=== PATIENT | male | born 1970 | race African-American/Black ===

== ENCOUNTER 2018-04-16 12:30 | Inpatient (IN) | payer MEDICARE, MEDICAID ==
[~2018-04-16] VITALS: Ht 175.3 cm; Wt 96.6 kg
[2018-04-16 12:50] VITALS: BP 177/120
--- NOTE | 2018-04-16 13:58 | Diagnostic Imaging Report ---
Indication: Chest pain Comparison: None A single view chest radiograph was obtained. Findings: There is a left permacath present in good position. Cardiomegaly is noted. Pulmonary vascularity is mildly prominent. Bones are unremarkable. IMPRESSION: Left permacath. Query mild CHF
[2018-04-16 14:39] LABS: ALANINE AMINOTRANSFERASE 29 U/L (12-78); ALBUMIN 3.7 G/DL (3.4-5.0); ALBUMIN/GLOBULIN RATIO 1.2 (1.0-2.7); ALKALINE PHOSPHATASE 139 U/L (46-116); ANION GAP 15 mmol/L (5-15); ASPARTATE AMINO TRANSFERASE 32 U/L (15-37); BILIRUBIN,TOTAL 0.5 MG/DL (0.2-1.0); BLOOD UREA NITROGEN 67 mg/dL (7-18); CALCIUM 8.4 MG/DL (8.5-10.1); CARBON DIOXIDE 25 MMOL/L (21-32); CHLORIDE 102 MMOL/L (98-107); CKMB 12.5 NG/ML (0.0-3.6); CREATINE KINASE 988 U/L (26-308); CREATININE 17.4 MG/DL (0.55-1.30); POTASSIUM 5.3 MMOL/L (3.5-5.1); SODIUM 142 MMOL/L (136-145)
[2018-04-16 15:05] LABS: HEMATOCRIT 31.5 % (42.0-52.0); HEMOGLOBIN 10.6 G/DL (14.2-18.0); MEAN CORPUSCULAR VOLUME 96 FL (80-99); PLATELET COUNT 97 K/UL (150-450); RED BLOOD COUNT 3.29 M/UL (4.70-6.10); RED CELL DISTRIBUTION WIDTH 14.6 % (11.6-14.8); WHITE BLOOD COUNT 6.9 K/UL (4.8-10.8)
--- NOTE | 2018-04-16 15:18 | Emergency Room Report ---
History of Present Illness General Chief Complaint: General Complaint Source: Patient Present Illness HPI 47-year-old male presents ED for evaluation. Patient states that he was sent here for fluid overload. History of end-stage renal disease and gets dialysis. Patient got dialysis on Saturday because center was closed on Saturday for holiday. Patient is here for his scheduled Saturday dialysis but center sent him here because he had "too much fluid". Patient denies chest pain or shortness of breath. Denies any weakness. Denies any dizziness. No other aggravating relieving factors. Denies any other associated symptoms Allergies: Coded Allergies: No Known Allergies (Unverified , 04/16/18) Patient History Past Medical History: HTN, renal disease, dialysis Past Surgical History: none Pertinent Family History: none Social History: Denies: smoking, alcohol use, drug use Immunizations: UTD Reviewed Nursing Documentation: PMH: Agreed; PSxH: Agreed Nursing Documentation-PMH Past Medical History: No History, Except For Hx Hypertension: Yes Hx Dialysis: Yes - M-W-F Review of Systems All Other Systems: negative except mentioned in HPI Physical Exam Vital Signs Date Time Temp Pulse Resp B/P (MAP) Pulse Ox O2 Delivery O2 Flow Rate FiO2 04/16/18 12:45 98.1 93 20 184/110 95 Room Air Sp02 EP Interpretation: reviewed, normal General Appearance: no apparent distress, alert, GCS 15, non-toxic Head: normocephalic, atraumatic Eyes: bilateral eye normal inspection, bilateral eye PERRL ENT: hearing grossly normal, normal pharynx, no angioedema, normal voice Neck: full range of motion, supple/symm/no masses Respiratory: chest non-tender, lungs clear, normal breath sounds, speaking full sentences Cardiovascular #1: regular rate, rhythm, no edema Cardiovascular #2: 2+ carotid (R), 2+ carotid (L), 2+ radial (R), 2+ radial (L) , 2+ dorsalis pedis (R), 2+ dorsalis pedis (L) Gastrointestinal: normal bowel sounds, non tender, soft, no guarding, no rebound, other - anasarca Rectal: deferred Genitourinary: normal inspection, no CVA tenderness Musculoskeletal: back normal, gait/station normal, normal range of motion, non- tender Neurologic: alert, oriented x3, responsive, motor strength/tone normal, sensory intact, speech normal Psychiatric: judgement/insight normal, memory normal, mood/affect normal, no suicidal/homicidal ideation Reflexes: 3+ bicep (R), 3+ bicep (L), 3+ tricep (R), 3+ tricep (L), 3+ knee (R) , 3+ knee (L) Skin: normal color, no rash, warm/dry, well hydrated Lymphatic: no adenopathy Medical Decision Making Diagnostic Impression: Primary Impression: ESRD on dialysis Additional Impression: Fluid overload Qualified Codes: E87.70 - Fluid overload, unspecified ER Course Hospital Course 47 yo M presents with fluid overload. h/o ESRD Differential diagnoses include: IA/unstable angina, fluid overload, CHF exacerabation, hyperkalemia, uremia Clinical course Patient placed on stretcher. on property assessment monitor. After initial history and physical I ordered labs, EKG, chest x-ray labs reviewed- BUN/Cr elevated. K 5.1. no leukocytosis, hemoglobin/hematocrit stable, trop 0.09 EKG - NSR, no acute ischemic changes interpreted by me Chest x-ray- permacath, cardiomegaly No chest pain or shortness of breath. Likely troponin leak. Asymptomatic. Case discussed with Dr. Schmidt and he agreed to accept the patient to his service for further care and support I. I feel this is a highly complex case requiring extensive working including EKG/Rhythm strip, Xray/CT/US, Blood/urine lab work, repeat exams while in ED, and administration of strong opiates/narcotics for pain control, admission to hospital or close patient follow up. Diagnosis - ESRD on dialysis, fluid overload admitted to floor in serious condition Labs Test 04/16/18 13:55 04/16/18 14:25 Sodium Level 142 MMOL/L (136-145) Potassium Level 5.3 MMOL/L (3.5-5.1) Chloride Level 102 MMOL/L (98-107) Carbon Dioxide Level 25 MMOL/L (21-32) Anion Gap 15 mmol/L (5-15) Blood Urea Nitrogen 67 mg/dL (7-18) Creatinine 17.4 MG/DL (0.55-1.30) Estimat Glomerular Filtration Rate 3.6 mL/min (>60) Glucose Level 89 MG/DL (74-106) Calcium Level 8.4 MG/DL (8.5-10.1) Total Bilirubin 0.5 MG/DL (0.2-1.0) Aspartate Amino Transf (AST/SGOT) 32 U/L (15-37) Alanine Aminotransferase (ALT/SGPT) 29 U/L (12-78) Alkaline Phosphatase 139 U/L (46-116) Total Creatine Kinase 988 U/L (26-308) Creatine Kinase MB 12.5 NG/ML (0.0-3.6) Creatine Kinase MB Relative Index 1.2 Troponin I 0.099 ng/mL (0.000-0.056) Pro-B-Type Natriuretic Peptide 7870 pg/mL (0-125) Total Protein 6.9 G/DL (6.4-8.2) Albumin 3.7 G/DL (3.4-5.0) Globulin 3.2 g/dL Albumin/Globulin Ratio 1.2 (1.0-2.7) White Blood Count 6.9 K/UL (4.8-10.8) Red Blood Count 3.29 M/UL (4.70-6.10) Hemoglobin 10.6 G/DL (14.2-18.0) Hematocrit 31.5 % (42.0-52.0) Mean Corpuscular Volume 96 FL (80-99) Mean Corpuscular Hemoglobin 32.3 PG (27.0-31.0) Mean Corpuscular Hemoglobin Concent 33.7 G/DL (32.0-36.0) Red Cell Distribution Width 14.6 % (11.6-14.8) Platelet Count 97 K/UL (150-450) Mean Platelet Volume 8.4 FL (6.5-10.1) Neutrophils (%) (Auto) % (45.0-75.0) Lymphocytes (%) (Auto) % (20.0-45.0) Monocytes (%) (Auto) % (1.0-10.0) Eosinophils (%) (Auto) % (0.0-3.0) Basophils (%) (Auto) % (0.0-2.0) EKG Diagnostic Results Rate: normal Rhythm: NSR ST Segments: no acute changes ASA given to the pt in ED: No Rhythm Strip Diag. Results EP Interpretation: yes Rhythm: NSR, no PVC's, no ectopy Last Vital Signs Date Time Temp Pulse Resp B/P (MAP) Pulse Ox O2 Delivery O2 Flow Rate FiO2 04/16/18 12:50 96 14 Room Air 04/16/18 12:50 98.4 177/120 99 Status: improved Disposition: ADMITTED INPATIENT Condition: Serious Referrals: Stormy Martínez MD (PCP) Palomo Wheeler MD Apr 16, 2018 15:18
[2018-04-16 15:30] VITALS: BP 167/110
[2018-04-16] MEDS ORDERED: ASPIR 8181 MG ORAL (16:22)
[2018-04-16] MEDS ORDERED: NORMODYNE100 MG ORAL (16:22)
[2018-04-16] MEDS ORDERED: LABETALOL H5 MG/1 M1 IV (16:22)
[2018-04-16] MEDS ORDERED: AMLODIPINE BES2.5 MG ORAL (16:22)
[2018-04-16 18:00] VITALS: BP 167/103
[2018-04-16] MEDS ORDERED: CALCIUM CARBON500 M1 (18:28)
[2018-04-16] MEDS ORDERED: CALCIUM500 M3 PO (18:28)
[2018-04-16] MEDS ORDERED: SIMVASTATIN40 MG ORAL (19:07)
[2018-04-16] MEDS ORDERED: AMLODIPINE BESY10 MG ORAL (19:07)
[2018-04-16] MEDS ORDERED: ACETAMINOPHEN325 M1 ORAL (19:07)
[2018-04-16] MEDS ORDERED: VITAMIN D1000 UNI1 ORAL (19:07)
[2018-04-16] MEDS ORDERED: RENVELA800 MG ORAL (19:07)
[2018-04-16] MEDS ORDERED: OMEPRAZOLE20 M2 ORAL (19:07)
[2018-04-16] MEDS ORDERED: RENVELA0.8 GM ORAL (19:07)
[2018-04-16] MEDS ORDERED: QUETIAPINE FUM200 MG ORAL (19:07)
[2018-04-16] MEDS ORDERED: LABETALOL HCL300 MG ORAL (19:07)
[2018-04-16] MEDS ORDERED: CALCIUM ACETAT667 M1 PO (19:07)
--- NOTE | 2018-04-16 19:15 | History and Physical Report ---
DATE OF ADMISSION: 04/16/2018 CHIEF COMPLAINT: Shortness of breath. HISTORY OF PRESENT ILLNESS: This is a 47 [place] male, who as a result of the holiday gained 8 KG. of fluids. The patient presented to the outpatient dialysis and was transferred to this hospital emergency room and is admitted. PAST MEDICAL HISTORY: 1. End-stage renal failure on dialysis. 2. Hypertensive cardiovascular disease. 3. Anemia of chronic kidney disease. MEDICATIONS: Home medications, amlodipine, labetalol, baby aspirin, Epogen on dialysis. ALLERGIES: No known drug allergies. FAMILY HISTORY: Unremarkable. SOCIAL HISTORY: He is a nonsmoker, nondrinker. There is no history of illicit drug abuse. REVIEW OF SYSTEMS: HEENT: Hearing and eyesight are normal. ENDOCRINE: No history of diabetes, thyroid or adrenal problems. RESPIRATORY: Significant for orthopnea, paroxysmal nocturnal dyspnea, dyspnea on effort. NEUROLOGICAL: No history of stroke, syncope, or Parkinson disease. PHYSICAL EXAMINATION: GENERAL: This is a middle-aged male, who is in moderate respiratory distress. VITAL SIGNS: Blood pressure 177/120, pulse is 96, respirations 20 and unlabored, O2 saturation is 99% on room air, and temperature 98.4 oral. HEENT: The head is normocephalic and atraumatic. Pupils are equal, round, and reactive to light and accommodation consensually. NECK: Supple. Trachea midline. There was no lymphadenopathy. He has jugular venous distention. LUNGS: Bilateral wheezes. HEART: Regular rate and rhythm without rubs, murmurs, or gallops. ABDOMEN: Soft and nontender. Bowel sounds were active. EXTREMITIES: His arms show multiple scars from previous vascular surgeries. NEUROLOGIC: He is alert and oriented x4. Cranial nerves II through XII intact. LABORATORY AND DIAGNOSTIC DATA: Chest x-ray shows mild congestive heart failure. CBC, hemoglobin 10.6, otherwise within normal limits. Chemistry, potassium 5.3, BUN 67, and creatinine 17.4. Troponin level 0.099. ASSESSMENT: 1. Excessive fluid overload. 2. History of pulmonary edema. 3. End-stage renal failure on dialysis. 4. Hypertensive cardiovascular disease. 5. Anemia of chronic kidney disease. PLAN: 1. Back to back dialysis today and tomorrow for removal of about eight liters of excess fluid. 2. Rule out acute myocardial ischemia. Stormy Martínez M.D. DR: BRANNON JOB#: [id number] CC: CECILIA
[2018-04-16 19:59] VITALS: BP 160/98
[2018-04-16] MEDS ORDERED: Albuterol/Ipratropium 3ml neb HHN PRN (23:00)
[2018-04-16] MEDS: Atorvastatin 20mg tab ORAL SCH (23:41)
[2018-04-16] MEDS: QUEtiapine 200mg tab ORAL SCH (23:41)
[2018-04-17] VITALS: BP 143/89
[2018-04-17 04:00] VITALS: BP 158/78
[2018-04-17 08:00] VITALS: BP 151/92
[2018-04-17] MEDS: Aspirin EC 81mg tab ORAL SCH (08:53)
[2018-04-17] MEDS: Vitamin D 1000 IU Tab ORAL SCH (08:54)
[2018-04-17] MEDS: Calcium Acetate 667mg Tab ORAL SCH ×3 (08:54→18:38)
[2018-04-17 12:00] VITALS: BP 151/105
[2018-04-17] MEDS ORDERED: Heparin 1000 units/ml 1ml Vial INJ SCH ×2 (14:30)
[2018-04-17] MEDS ORDERED: Heparin Sod 1000 units/ml 10ml IV ONE (14:30)
[2018-04-17] MEDS ORDERED: Heparin Sod 1000 units/ml 10ml IV SCH (14:30)
[2018-04-17 15:05] LABS: BASOPHILS % (AUTO) 0.9 % (0.0-2.0); EOSINOPHILS % (AUTO) 3.4 % (0.0-3.0); HEMATOCRIT 32.2 % (42.0-52.0); HEMOGLOBIN 10.8 G/DL (14.2-18.0); LYMPHOCYTES % (AUTO) 14.5 % (20.0-45.0); MEAN CORPUSCULAR VOLUME 95 FL (80-99); MONOCYTES % (AUTO) 11.5 % (1.0-10.0); NEUTROPHILS % (AUTO) 69.6 % (45.0-75.0); PLATELET COUNT 109 K/UL (150-450); RED BLOOD COUNT 3.38 M/UL (4.70-6.10); RED CELL DISTRIBUTION WIDTH 14.5 % (11.6-14.8); WHITE BLOOD COUNT 6.9 K/UL (4.8-10.8)
[2018-04-17 15:28] LABS: ANION GAP 14 mmol/L (5-15); BLOOD UREA NITROGEN 60 mg/dL (7-18); CALCIUM 8.6 MG/DL (8.5-10.1); CARBON DIOXIDE 24 MMOL/L (21-32); CHLORIDE 100 MMOL/L (98-107); CREATININE 15.5 MG/DL (0.55-1.30); POTASSIUM 5.1 MMOL/L (3.5-5.1); SODIUM 138 MMOL/L (136-145)
[2018-04-17 15:30] LABS: PHOSPHORUS 6.8 MG/DL (2.5-4.9)
[2018-04-17 16:00] VITALS: BP 153/112
--- NOTE | 2018-04-17 17:16 | Nephrology Progress Note ---
Assessment/Plan Plan Fluid overload - HD tomorrow with high volume UF. Fluid restriction. Malig. HTN-----> Escalate Rx Subjective Subjective Still SOB!!! Objective Objective Last 24 Hour Vital Signs Date Time Temp Pulse Resp B/P (MAP) Pulse Ox O2 Delivery O2 Flow Rate FiO2 04/17/18 14:11 97.7 04/17/18 12:00 97.7 92 20 151/105 (120) 98 04/17/18 09:00 Nasal Cannula 2.0 04/17/18 08:54 99 151/92 04/17/18 08:53 99 151/92 04/17/18 08:12 96 Nasal Cannula 2.0 28 04/17/18 08:12 98 18 Nasal Cannula 2.0 28 04/17/18 08:12 Nasal Cannula 2.0 28 04/17/18 08:00 95 04/17/18 08:00 97.0 99 19 151/92 (111) 98 04/17/18 04:00 95 04/17/18 04:00 97.5 95 18 158/78 (104) 98 04/17/18 00:00 85 04/17/18 00:00 98.2 87 18 143/89 (107) 94 04/16/18 23:18 Nasal Cannula 2.0 04/16/18 21:13 91 04/16/18 20:00 97.5 92 22 160/98 99 Nasal Cannula 2.0 04/16/18 19:59 97.5 94 25 160/98 99 Room Air 04/16/18 18:00 98.2 94 24 167/103 95 Intake and Output 04/16/18 04/17/18 18:59 06:59 Intake Total 240 ml Balance 240 ml Intake Oral 240 ml # Voids 1 Laboratory Tests 04/17/18 14:35: White Blood Count 6.9, Red Blood Count 3.38L, Hemoglobin 10.8L, Hematocrit 32.2L , Mean Corpuscular Volume 95, Mean Corpuscular Hemoglobin 31.9H, Mean Corpuscular Hemoglobin Concent 33.4, Red Cell Distribution Width 14.5, Platelet Count 109L, Mean Platelet Volume 11.2H, Neutrophils (%) (Auto) 69.6, Lymphocytes (%) (Auto) 14.5L, Monocytes (%) (Auto) 11.5H, Eosinophils (%) (Auto ) 3.4H, Basophils (%) (Auto) 0.9, Sodium Level 138, Potassium Level 5.1, Chloride Level 100, Carbon Dioxide Level 24, Anion Gap 14, Blood Urea Nitrogen 60H, Creatinine 15.5H, Estimat Glomerular Filtration Rate 4.1, Glucose Level 101 , Calcium Level 8.6, Phosphorus Level 6.8H Height (Feet): 5 Height (Inches): 9.00 Weight (Pounds): 189 Objective CV RR Lungs B wheezes Abds SNT. BS + E +3 edema. Stormy Martínez MD Apr 17, 2018 17:16
[2018-04-17 20:00] VITALS: BP 164/110
[2018-04-17] MEDS: Albuterol/Ipratropium 3ml neb HHN SCH ×2 (20:43→23:47)
[2018-04-17] MEDS: Atorvastatin 20mg tab ORAL SCH (21:17)
[2018-04-17] MEDS: QUEtiapine 200mg tab ORAL SCH (21:17)
[2018-04-17] MEDS: Minoxidil 2.5mg tab ORAL SCH (21:18)
[2018-04-18] VITALS: BP 149/113
[2018-04-18] MEDS: Albuterol/Ipratropium 3ml neb HHN SCH ×4 (02:18→14:53)
[2018-04-18 04:33] VITALS: BP 171/118
[2018-04-18] MEDS ORDERED: Heparin Sod 1000 units/ml 10ml IV PRN (06:00)
[2018-04-18] MEDS ORDERED: Heparin 1000 units/ml 1ml Vial INJ PRN (06:00)
[2018-04-18 08:00] VITALS: BP 161/113
--- NOTE | 2018-04-18 08:21 | Nephrology Progress Note ---
Assessment/Plan Plan Fluid overload - HD today with high volume UF. Fluid restriction. Malig. HTN-----> Escalate Rx Sleep Apnea 2 to Obesity - to Dw patient Wt. Loss needed. Subjective Subjective Still SOB!!! Observed during sleep -----> snoring!! Objective Objective Last 24 Hour Vital Signs Date Time Temp Pulse Resp B/P (MAP) Pulse Ox O2 Delivery O2 Flow Rate FiO2 04/18/18 04:34 106 04/18/18 04:33 97.7 108 19 171/118 (135) 97 04/18/18 02:27 87 18 96 Nasal Cannula 2.0 28 04/18/18 02:18 98 22 92 Room Air 21 04/18/18 00:00 97.2 99 20 149/113 (125) 97 04/18/18 00:00 96 04/17/18 23:55 97 18 96 Nasal Cannula 2.0 28 04/17/18 23:47 82 22 93 Room Air 21 04/17/18 21:45 96.6 04/17/18 21:18 164/110 04/17/18 21:17 95 164/110 04/17/18 21:00 Nasal Cannula 2.0 04/17/18 20:52 94 18 98 Nasal Cannula 2.0 28 04/17/18 20:44 98 18 Room Air 21 04/17/18 20:44 93 Room Air 21 04/17/18 20:44 Room Air 21 04/17/18 20:44 98 18 93 Room Air 21 04/17/18 20:00 97.0 95 18 164/110 (128) 97 04/17/18 20:00 98 04/17/18 16:00 91 04/17/18 16:00 96.6 93 22 153/112 (126) 96 04/17/18 12:00 97.7 92 20 151/105 (120) 98 04/17/18 12:00 94 04/17/18 09:00 Nasal Cannula 2.0 04/17/18 08:54 99 151/92 04/17/18 08:53 99 151/92 Intake and Output 04/17/18 04/18/18 19:00 07:00 Intake Total 520 ml 120 ml Balance 520 ml 120 ml Intake Oral 520 ml 120 ml # Voids 2 Laboratory Tests 04/17/18 14:35: White Blood Count 6.9, Red Blood Count 3.38L, Hemoglobin 10.8L, Hematocrit 32.2L , Mean Corpuscular Volume 95, Mean Corpuscular Hemoglobin 31.9H, Mean Corpuscular Hemoglobin Concent 33.4, Red Cell Distribution Width 14.5, Platelet Count 109L, Mean Platelet Volume 11.2H, Neutrophils (%) (Auto) 69.6, Lymphocytes (%) (Auto) 14.5L, Monocytes (%) (Auto) 11.5H, Eosinophils (%) (Auto ) 3.4H, Basophils (%) (Auto) 0.9, Sodium Level 138, Potassium Level 5.1, Chloride Level 100, Carbon Dioxide Level 24, Anion Gap 14, Blood Urea Nitrogen 60H, Creatinine 15.5H, Estimat Glomerular Filtration Rate 4.1, Glucose Level 101 , Calcium Level 8.6, Phosphorus Level 6.8H Height (Feet): 5 Height (Inches): 9.00 Weight (Pounds): 213 Objective CV RR Lungs B wheezes Abds SNT. BS + E +3 edema. Stormy Martínez MD Apr 18, 2018 08:21
[2018-04-18 08:55] LABS: BASOPHILS % (AUTO) 0.5 % (0.0-2.0); EOSINOPHILS % (AUTO) 2.1 % (0.0-3.0); HEMATOCRIT 32.8 % (42.0-52.0); HEMOGLOBIN 10.9 G/DL (14.2-18.0); LYMPHOCYTES % (AUTO) 9.9 % (20.0-45.0); MEAN CORPUSCULAR VOLUME 95 FL (80-99); MONOCYTES % (AUTO) 8.7 % (1.0-10.0); NEUTROPHILS % (AUTO) 78.9 % (45.0-75.0); PLATELET COUNT 111 K/UL (150-450); RED BLOOD COUNT 3.47 M/UL (4.70-6.10); RED CELL DISTRIBUTION WIDTH 14.4 % (11.6-14.8); WHITE BLOOD COUNT 7.5 K/UL (4.8-10.8)
[2018-04-18] MEDS: Vitamin D 1000 IU Tab ORAL SCH (09:00)
[2018-04-18] MEDS: Minoxidil 2.5mg tab ORAL SCH (09:00)
[2018-04-18] MEDS: Aspirin EC 81mg tab ORAL SCH (09:00)
[2018-04-18] MEDS: Calcium Acetate 667mg Tab ORAL SCH ×3 (09:01→16:37)
[2018-04-18 09:02] LABS: ANION GAP 13 mmol/L (5-15); BLOOD UREA NITROGEN 67 mg/dL (7-18); CALCIUM 8.3 MG/DL (8.5-10.1); CARBON DIOXIDE 25 MMOL/L (21-32); CHLORIDE 99 MMOL/L (98-107); CREATININE 18.1 MG/DL (0.55-1.30); PHOSPHORUS 6.4 MG/DL (2.5-4.9); POTASSIUM 5.8 MMOL/L (3.5-5.1); SODIUM 137 MMOL/L (136-145)
[2018-04-18 11:52] VITALS: BP 169/107
--- NOTE | 2018-04-21 08:46 | Discharge Summary ---
Discharge Summary Discharge Summary _ DATE OF ADMISSION: 04/16/2018 DATE OF DISCHARGE: 04/18/2018 DISCHARGED BY: Dr. Martínez REASON FOR ADMISSION: 47 years old male with end-stage renal disease, on hemodialysis Saturday , Saturday, Saturday, hypertensive cardiovascular disease, anemia of chronic kidney disease, presented to outpatient hemodialysis and was found to have weight gain of 8 kg of fluids over the holidays. Patient was subsequently transferred to the hospital emergency room for further evaluation and management. Patient denied chest pain. Pulse oximetry was stable on room air. Upon evaluation blood pressure was 184/110. BUN 67, creatinine 17.4 consistent with known history of end-stage renal disease. EKG revealed normal sinus rhythm, no acute ischemic changes. Hemoglobin 10.6, hematocrit 31.5 . Troponin level 0.099. EKG revealed normal sinus rhythm, no acute ischemic changes . Chest x-ray revealed mild CHF and evidence of left Perma-catheter. Patient was admitted for further management of fluid overload. HOSPITAL COURSE: Patient admitted to monitored floor. Patient started on hemodialysis for 2 days ( back to back) with goal to remove of about 8 Liters of fluid. Volumes and renal parameters were closely monitored. Supplemental oxygen was on board as needed to keep pulse oximetry above 92%. Pulse oximetry was stable on room air. No complaints of chest pain. Antihypertensive regimen consisted of labetalol and amlodipine , dose uptitrated to keep blood pressure under control. Hypertensive urgency was due to malignant hypertension and fluid overload. Antiplatelet therapy with aspirin along with statin were continued. Mild elevation in troponin,w as likely due to renal failure/troponin leak. ECG and telemetry revealed no acute ischemic changes. No complaints of chest pain . Hemoglobin and hematocrit were closely monitored, remained at baseline. Patient was counseled on weight loss. Patient was stable for discharge home FINAL DIAGNOSES: Fluid overload Hypertensive urgency due to malignant hypertension History of pulmonary edema Hypertensive cardiovascular disease End-stage renal disease, on hemodialysis Anemia of chronic kidney disease Obesity Obstructive sleep apnea DISCHARGE MEDICATIONS: See Medication Reconciliation list. DISCHARGE INSTRUCTIONS: Patient was discharged home . Reinforced compliance with medication regimen and outpatient hemodialysis. Patient was counseled on weight loss. I have been assigned to dictate discharge summary for this account. I was not involved in the patient's management. Laverne Ramirez NP Apr 21, 2018 08:46
--- NOTE | 2018-04-22 08:51 | Cardiology Report ---
APPROVED REPORT EXAM: Two-dimensional and M-mode echocardiogram with Doppler and color Doppler. INDICATION Congestive Heart Failure M-Mode DIMENSIONS IVSd1.3 (0.7-1.1cm)Left Atrium (MM)4.7 (1.6-4.0cm) LVDd4.8 (3.5-5.6cm)Aortic Root3.8 (2.0-3.7cm) PWd1.5 (0.7-1.1cm)Aortic Cusp Exc.1.7 (1.5-2.0cm) LVDs3.0 (2.5-4.0cm) PWs1.4 cm Normal left ventricular chamber size, systolic function and wall motion. Left ventricular ejection fraction estimated to be 65 %. Mild left ventricular hypertrophy. Anterior Echo-free space, may be due to pericardial fat or effusion. Moderate left atrial enlargement. Mild right atrial enlargement. Right ventricular chamber size is within normal limits. Mild focal aortic valve sclerosis with adequate cusp excursion. Mildly thickened mitral valve leaflets with normal excursion. Mitral annulus and aortic root calcification. Pulmonic valve not well visualized. Normal tricuspid valve structure. IVC at normal size with physiologic collapse. A color flow and spectral Doppler study was performed and revealed: Moderate to severe aortic regurgitation. Mild mitral regurgitation. Mitral diastolic velocities suggest reduced left ventricular relaxation c/w mild LV diastolic dysfunction (Grade I). Mild tricuspid regurgitation. Tricuspid systolic velocities suggests peak right ventricular systolic pressure of 35 mmHg, consistent with borderline mild pulmonary hypertension. Pulmonic regurgitation present.
== END 2018-04-18 18:00 | disposition home or self-care (01) | DRG 640 ==
LOC: EMR 13:14 → 2E 14:14 → EDBEDREQ 14:27 → EDBEDREQSVC 17:57 → EDBEDREQ 18:39
PROC: 5A1D70Z Performance of Urinary Filtration, Intermittent, Less than 6 Hours Per Day (ICD-10-PCS; principal; 2018-04-16)
DX: E87.79 Other fluid overload (principal); N18.6 End stage renal disease; I13.11 Hypertensive heart and chronic kidney disease without heart failure, with stage 5 chronic kidney disease, or end stage renal disease; I16.0 Hypertensive urgency; D63.1 Anemia in chronic kidney disease; Z99.2 Dependence on renal dialysis; G47.33 Obstructive sleep apnea (adult) (pediatric); E66.9 Obesity, unspecified; Z68.28 Body mass index [BMI] 28.0-28.9, adult
CPT/HCPCS: 36415; 71045; 80048; 80053; 82550; 82553; 83880; 84100; 84484; 85007; 85025; 87081; 93306; 94640; 94664; 94760; 99285; J7620

== ENCOUNTER 2018-07-18 11:10 | Inpatient (IN) | payer MEDICARE, MEDICAID ==
[~2018-07-18] VITALS: Ht 167.6 cm; Wt 90.7 kg
[2018-07-18] VITALS (12 sets, daily range): BP systolic 104–140; BP diastolic 50–89
[~2018-07-18 11:10] MED LIST: ACETAMINOPHEN325 M1 ORAL; AMLODIPINE BES2.5 MG ORAL; AMLODIPINE BESY10 MG ORAL; ASPIR 8181 MG ORAL; CALCIUM ACETAT667 M1 PO; CALCIUM CARBON500 M1; CALCIUM500 M3 PO; LABETALOL H5 MG/1 M1 IV; LABETALOL HCL300 MG ORAL; NORMODYNE100 MG ORAL; OMEPRAZOLE20 M2 ORAL; QUETIAPINE FUM200 MG ORAL; RENVELA0.8 GM ORAL; RENVELA800 MG ORAL; SIMVASTATIN40 MG ORAL; VITAMIN D1000 UNI1 ORAL
[2018-07-18] MEDS ORDERED: UNOBMED (11:43)
[2018-07-18] MEDS ORDERED: Piperacillin/Tazobactam 3.375 GM in NS 110 ML IVPB ONE (12:15)
[2018-07-18] MEDS ORDERED: Vancomycin 1 GM in NS 275 ML IV ONE (12:15)
[2018-07-18 12:18] LABS: HEMATOCRIT 34.5 % (42.0-52.0); HEMOGLOBIN 11.2 G/DL (14.2-18.0); MEAN CORPUSCULAR VOLUME 97 FL (80-99); PLATELET COUNT 135 K/UL (150-450); RED BLOOD COUNT 3.55 M/UL (4.70-6.10); RED CELL DISTRIBUTION WIDTH 14.6 % (11.6-14.8); WHITE BLOOD COUNT 11.2 K/UL (4.8-10.8)
--- NOTE | 2018-07-18 12:24 | Emergency Room Report ---
History of Present Illness General Chief Complaint: Fever Source: Patient, Medical Record Present Illness HPI 47-year-old male with a history of ESRD on Saturday hemodialysis this sent from his dialysis clinic for a fever, patient reports he vomited twice today but is not having any pain complaints, he has had left chest Vas- Cath site and reports it has not been bothering him but reports it supposed to be removed soon because now he is dialyzed from his left arm fistula. He denies cough, shortness of breath, body aches, abdominal pain, chest pain, cough , sputum production, headache, and reports he is anuric. He only complains of vomiting twice this morning and also a little bit of loose stool but no abdominal pain. Denies any pain, redness or discharge at his Vas-Cath site nor pain or redness over his fistula. Allergies: Coded Allergies: No Known Allergies (Unverified , 04/16/18) Patient History Past Medical History: see triage record Reviewed Nursing Documentation: PMH: Agreed; PSxH: Agreed Nursing Documentation-PMH Past Medical History: No History, Except For Hx Cardiac Problems: Yes Hx Hypertension: Yes Hx Cancer: No Hx Gastrointestinal Problems: No Hx Dialysis: Yes - M-W-F Hx Neurological Problems: No Review of Systems All Other Systems: negative except mentioned in HPI Physical Exam Vital Signs Date Time Temp Pulse Resp B/P (MAP) Pulse Ox O2 Delivery O2 Flow Rate FiO2 07/18/18 11:40 102.6 107 35 104/57 97 Room Air Sp02 EP Interpretation: reviewed, normal General Appearance: alert, non-toxic, mild distress Head: normocephalic Eyes: bilateral eye normal inspection, bilateral eye PERRL, bilateral eye EOMI ENT: normal ENT inspection, hearing grossly normal, normal pharynx, no angioedema, normal voice, moist mucus membranes Neck: normal inspection, full range of motion, supple, supple/symm/no masses Respiratory: chest non-tender, lungs clear, normal breath sounds, no rhonchi, no respiratory distress, no retraction, no accessory muscle use, no wheezing, chest symmetrical, palpation of chest normal Cardiovascular #1: normal peripheral pulses, regular rate, rhythm, no edema, no gallop, no JVD, no murmur, no rub, JVD Cardiovascular #2: 2+ radial (R), 2+ radial (L), 2+ dorsalis pedis (R), 2+ dorsalis pedis (L) Gastrointestinal: normal inspection, non tender, soft, no mass, no guarding, no rebound Rectal: deferred Genitourinary: normal inspection, no CVA tenderness Musculoskeletal: back normal, gait/station normal, normal range of motion, non- tender, no calf tenderness, Ariana's Sign negative, other - LUE AVF with + thrill Neurologic: alert, responsive, forensic toxicologist III-XII nml as tested, motor strength/tone normal, sensory intact, speech normal Psychiatric: judgement/insight normal, memory normal, mood/affect normal Skin: normal color, no rash, warm/dry, normal turgor, other - no erythema/ warmth/tenderness/purulence over LUE Lymphatic: no adenopathy Procedures Critical Care Time Critical Care Time 45 minutes of critical care time excluding all procedures given patient's significant distress and catheter associated sepsis. Medical Decision Making Diagnostic Impression: Primary Impression: Fever ER Course The first of arrival, patient had blood cultures, lactic acid, blood treatment initiated, who refused large volume fluid resuscitation due to his end-stage renal disease and not having had dialysis. Was given 1 L of saline however. At 1:05 PM, repeat focused sepsis exam was performed, patient remains hemodynamically stable. I discussed the case with Dr. Hawknis the patient's care support representative, he told me he would immediately get in touch with Dr. Camilo, neurosurgeon, and have him remove the catheter because he also suspected this was a likely source. Patient will be admitted to Dr. Hawkins for emergency dialysis as well as catheter removal. EKG Diagnostic Results EKG Time: 12:14 EP Interpretation: no stemi Rate: tachycardiac Rhythm: NSR ST Segments: no acute changes Rhythm Strip Diag. Results Rhythm Strip Time: 12:24 EP Interpretation: yes Rate: 100 Rhythm: NSR, no PVC's, no ectopy Chest X-Ray Diagnostic Results Chest X-Ray Diagnostic Results : Chest X-Ray Ordered: Yes # of Views/Limited/Complete: 1 View Indication: Other - fever, missed HD Interpretation: no consolidation, no effusion, no pneumothorax, other - +L chest vascath Impression: No acute disease Electronically Signed by: Juhi Pennington MD Last Vital Signs Date Time Temp Pulse Resp B/P (MAP) Pulse Ox O2 Delivery O2 Flow Rate FiO2 07/18/18 11:40 102.6 107 35 104/57 97 Room Air Condition: Serious JUHI PENNINGTON M.D Jul 18, 2018 12:24
[2018-07-18 12:30] LABS: INR 1.1 (0.9-1.1)
[2018-07-18] MEDS ORDERED: Acetaminophen 500mg (ES) tab ORAL ONE (12:30)
[2018-07-18 12:44] LABS: ALANINE AMINOTRANSFERASE 26 U/L (12-78); ANION GAP 17 mmol/L (5-15); BLOOD UREA NITROGEN 48 mg/dL (7-18); CALCIUM 8.8 MG/DL (8.5-10.1); CARBON DIOXIDE 22 MMOL/L (21-32); CHLORIDE 95 MMOL/L (98-107); CKMB 1.2 NG/ML (0.0-3.6); CREATINE KINASE 786 U/L (26-308); POTASSIUM 4.8 MMOL/L (3.5-5.1); SODIUM 134 MMOL/L (136-145)
[2018-07-18 12:59] LABS: ALKALINE PHOSPHATASE 100 U/L (46-116); ASPARTATE AMINO TRANSFERASE 34 U/L (15-37); BILIRUBIN,TOTAL 0.7 MG/DL (0.2-1.0); PHOSPHORUS 2.9 MG/DL (2.5-4.9)
--- NOTE | 2018-07-18 13:46 | Diagnostic Imaging Report ---
Indication: Vomiting, fever Technique: Spiral acquisitions obtained through the abdomen and pelvis. No oral contrast utilized, per emergency room physician request No IV contrast utilized, per referring physician request.. Multiplanar reconstructions were generated. Total dose length product 918.91 mGycm. CTDIvol(s) 17.05 mGy. Dose reduction achieved using automated exposure control Comparison: None Findings: Lack of enteric contrast limits assessment of the GI tract. The appendix is normal. Fluid is seen throughout the colon. No small bowel distention. The distal esophagus, stomach, duodenum are unremarkable. There is a tiny umbilical hernia which contains a knuckle of small bowel. There does not appear to be any bowel wall thickening or distention related to this. No free or loculated intraperitoneal gas or fluid is evident. Lack of IV contrast limits assessment of solid organs. The liver is unremarkable. The gallbladder is nondistended. The bile ducts are unremarkable. The pancreas demonstrates some calcifications on the edge of the head. The spleen, adrenals are unremarkable. The kidneys are somewhat atrophic bilaterally. The right kidney contains a solid round 5 cm mass. This is in the upper pole. This demonstrates some peripheral calcification. Both kidneys demonstrate multiple cysts. A calcification is seen in the lower pole of the left kidney. This may be calyceal or arterial. No retroperitoneal or mesenteric mass or adenopathy. No pelvic mass or adenopathy. The bladder is nondistended. The prostate is enlarged, measuring 6 cm transverse diameter. The included lung bases demonstrate posterior dependent atelectatic changes. The bones are unremarkable. The tip of a dialysis catheter is seen in the high right atrium. The heart is mildly enlarged. There is a density at the right lung base which is demonstrated on chest radiographs to represent a ring shaped metallic density Impression: 5 cm upper pole right renal mass. This is concerning for renal neoplasm. Further evaluation with contrast CT is recommended to better characterize Evidence of bilateral renal atrophy, consistent with known history of chronic renal disease and evidence of polycystic disease of uremia Fluid-filled colon, may indicate diarrheal illness. Tiny umbilical hernia containing a small knuckle of small bowel. No definite evidence of obstruction or strangulation. Intravascular foreign body within a right lower lobe pulmonary artery branch, of uncertain etiology, may reflect prior embolization procedure or could be the result of inadvertent embolization Prostatomegaly Mild cardiomegaly Dialysis catheter incidentally noted Findings discussed by phone with Dr. Keith in the emergency room at the time of interpretation The CT scanner at [facility] is accredited by the [employer] and the scans are performed using protocols designed to limit radiation exposure to as low as reasonably achievable to attain images of sufficient resolution adequate for diagnostic evaluation.
--- NOTE | 2018-07-18 13:46 | Diagnostic Imaging Report ---
Indication: Chest pain Technique: One view of the chest Comparison: 04/16/2017 Findings: The heart is enlarged. There is a left chest tunneled dialysis catheter again demonstrated. There is slight blunting of the left costophrenic sulcus. A circular foreign body is seen projecting at the right lung base, also evident previously, demonstrated on recent CT scan to be within a lower lobe pulmonary artery branch. Impression: Cardiomegaly. No definite acute process Dialysis catheter Small foreign body in a right lower lobe pulmonary artery branch, also evident previously retrospect, may reflect an embolized foreign body from a prior venous vascular procedure
[2018-07-18] MEDS ORDERED: Lidocaine 1% 10mg/ml/Epi 0.005mg/ml 30ml vial INJ ONE (15:00)
--- NOTE | 2018-07-18 17:40 | Pre-Procedure Note/Attestation ---
Pre-Procedure Note/Attestation Complete Prior to Procedure Planned Procedure: left Procedure Narrative: permacath removal Indications for Procedure Pre-Operative Diagnosis: suspected permacath infection Attestation I attest that I discussed the nature of the procedure; its benefits; risks and complications; and alternatives (and the risks and benefits of such alternatives ), prior to the procedure, with the patient (or the patient's legal membership sales representative). I attest that, if there was a reasonable possibility of needing a blood transfusion, the patient (or the patient's legal membership sales representative) was given the [facility] standardized written summary, pursuant to the Mark Rhoda Blood Safety Act ([place] Health and Safety Code # 1645, as amended). I attest that I re-evaluated the patient just prior to the surgery and that there has been no change in the patient's H&P, except as documented below: Rafi Boswell MD Jul 18, 2018 17:40
--- NOTE | 2018-07-18 17:41 | Brief Operative Note ---
Immediate Post Operative Note Operative Note Pre-op Diagnosis: suspected permacath infection Procedure: permacath removal Post-op Diagnosis: same Post-op Diagnosis: same as pre-op Surgeon: Regina Tellez Anesthesia: local Specimen: yes - catheter tip sent to lab for micro Complications: none Fluids: none Implant(s) used?: No Rafi Tellez MD Jul 18, 2018 17:41
[2018-07-18] MEDS ORDERED: Heparin Sod 1000 units/ml 10ml IV PRN (18:00)
[2018-07-18] MEDS ORDERED: Heparin 1000 units/ml 1ml Vial INJ PRN (18:00)
[2018-07-18] MEDS ORDERED: Heparin Sod 1000 units/ml 10ml IV ONE (18:15)
[2018-07-18] MEDS ORDERED: Acetaminophen 500mg (ES) tab ORAL PRN (20:00)
[2018-07-18] MEDS: Heparin 5000 units/ml inj SUBQ SCH (21:04)
--- NOTE | 2018-07-18 23:00 | History and Physical Report ---
DATE OF ADMISSION: 07/18/2018 CHIEF COMPLAINT: Tachypnea and fever. HISTORY OF PRESENT ILLNESS: This is a 47-year-old [place] male, who came today to his regular dialysis. The patient was noted to be febrile to 103 degrees Fahrenheit. He was also noted to be tachypneic. I instructed the patient not to have outpatient dialysis, but rather to re-route the patient to the ER. The patient most likely has PermCath-related septicemia. At this moment, the patient's PermCath is being extricated. PAST MEDICAL HISTORY: 1. End-stage renal failure. 2. Status post multiple vascular surgeries. 3. Hypertensive cardiovascular disease. 4. Psychosis. HOME MEDICATIONS: Tylenol p.r.n., amlodipine, baby aspirin, calcium acetate, vitamin D3, labetalol, omeprazole, Seroquel, Renvela, Zocor. ALLERGIES: No known drug allergies. FAMILY HISTORY: Unremarkable. 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 HABITS: He is a nonsmoker, nondrinker with no history of illicit drug abuse. REVIEW OF SYSTEMS: Currently unable to obtain. The patient is tachypneic. PHYSICAL EXAMINATION: GENERAL: This is a middle-aged [place] male, who is in severe dyspnea. VITAL SIGNS: Blood pressure 110/56, pulse 103, sinus tachycardia, respirations 30 and labored, temperature was initially 102.6 and currently 98.8 oral. HEENT: The head is normocephalic and atraumatic. The patient is diaphoretic. NECK: Supple. Trachea midline. The patient has jugular venous distention. There were no carotid bruits. LUNGS: Clear to auscultation and percussion. HEART: Tachycardia. S1 and S2. No rubs, murmurs, or gallops. He has left internal jugular PermCath. ABDOMEN: Soft and nontender. Bowel sounds were active. EXTREMITIES: No clubbing, cyanosis, or edema. He has a left upper arm AV fistula with thrill and bruit. NEUROLOGICAL: He is alert and oriented x4. Cranial nerves II through XII intact. LABORATORY AND ANCILLARY DATA: CBC shows white count of 11,200, hemoglobin 11.2. Chemistry, sodium 134, potassium 4.8, BUN 48, creatinine 15. Lactic acid 1.1. Troponin level is 0.22. ASSESSMENT: PermCath-related sepsis. PLAN: 1. The PermCath is being removed. We are sending the tip for culture. 2. Broad-spectrum IV antibiotics were given. 3. ICU care since the patient is tachypneic. 4. Obtain ABGs. 5. Hemodialysis for acid-base correction. Stormy Martínez M.D. DR: TORY JOB#: [id number] CC:
[2018-07-19] VITALS (19 sets, daily range): BP systolic 107–153; BP diastolic 58–97
[2018-07-19 06:16] LABS: BASOPHILS % (AUTO) 0.4 % (0.0-2.0); EOSINOPHILS % (AUTO) 0.3 % (0.0-3.0); HEMATOCRIT 31.7 % (42.0-52.0); HEMOGLOBIN 10.5 G/DL (14.2-18.0); LYMPHOCYTES % (AUTO) 9.5 % (20.0-45.0); MEAN CORPUSCULAR VOLUME 98 FL (80-99); NEUTROPHILS % (AUTO) 77.8 % (45.0-75.0); PLATELET COUNT 104 K/UL (150-450); RED BLOOD COUNT 3.22 M/UL (4.70-6.10); WHITE BLOOD COUNT 11.3 K/UL (4.8-10.8)
[2018-07-19 06:36] LABS: ANION GAP 16 mmol/L (5-15); BLOOD UREA NITROGEN 64 mg/dL (7-18); CALCIUM 8.5 MG/DL (8.5-10.1); CARBON DIOXIDE 23 MMOL/L (21-32); CHLORIDE 98 MMOL/L (98-107); CREATININE 17.3 MG/DL (0.55-1.30); POTASSIUM 4.6 MMOL/L (3.5-5.1); SODIUM 137 MMOL/L (136-145)
[2018-07-19] MEDS: Heparin 5000 units/ml inj SUBQ SCH ×2 (09:00→20:56)
[2018-07-19] MEDS ORDERED: Vancomycin 1gm/D5W 275ml IVPB ONE ×2 (10:00)
[2018-07-19] MEDS: Piperacillin/Tazobactam 2.25 GM in D5W 55 ML IVPB SCH ×2 (11:15→16:00)
--- NOTE | 2018-07-19 13:30 | Consultation ---
DATE OF CONSULTATION: 07/19/2018 INFECTIOUS DISEASES CONSULTATION CONSULTING PHYSICIAN: Ned Hsu M.D. REFERRING PHYSICIAN: Stormy Martínez M.D. REASON FOR CONSULTATION: Fever. HISTORY OF PRESENTING ILLNESS: This is a 47-year-old gentleman with history of hypertension, congestive heart failure, who came in with fever, cough, shortness of breath, nausea, vomiting, and diarrhea. There was a concern for catheter infection as he has renal failure, on dialysis. The catheter has been removed and an Infectious Diseases consultation has been obtained for antibiotics. PAST MEDICAL HISTORY: 1. History of renal failure, on dialysis. 2. Hypertension. 3. Cardiovascular disease. 4. Multiple vascular surgeries. 5. Congestive heart failure. 6. Psychosis. SOCIAL HISTORY: He does not smoke, drink, or use drugs. FAMILY HISTORY: His father has hypertension. REVIEW OF SYSTEMS: RESPIRATORY: He had fever and chills. He has cough, which is productive. He has shortness of breath. No chest pain. CARDIAC: No chest pain. No palpitations. No dizziness. No syncope. GASTROINTESTINAL: He had nausea and vomiting, which is improved. He also has diarrhea, which is improved. MEDICATIONS: As an inpatient, he is on Protonix, subcutaneous heparin, and Tylenol. ALLERGIES: No known drug allergies. PHYSICAL EXAMINATION: VITAL SIGNS: Temperature of 98.1, T-max of 102.6, pulse of 100, respiratory rate 22, blood pressure 128/83, and O2 saturation of 96%. HEENT: Pupils equally reactive to light and accommodation. Mouth appears clean without thrush. NECK: Supple. No adenopathy. No JVD. CARDIOVASCULAR: Regular rate and rhythm. No murmurs. LUNGS: Clear to auscultation bilaterally. No crackles. No wheezes. ABDOMEN: Soft and nontender. No organomegaly. EXTREMITIES: No cyanosis, no clubbing, no edema. LABORATORY AND DIAGNOSTIC DATA: White count 11.3, hemoglobin 10.5, hematocrit 31.7, MCV 98, and platelet count of 104. Sodium 137, potassium 4.6, chloride 98, bicarbonate 23, BUN 64, creatinine 17.3, glucose 108, calcium 8.5. Total bilirubin 0.7. AST 34, ALT 26, alkaline phosphatase 100. CK of 786, CK-MB 1.2. Troponin 0.2. Total protein 8.1, albumin of 4. Catheter tip cultures are pending. Nasal swab was negative for influenza A and B. Blood cultures showing gram-positive cocci in clusters. Chest x-ray is showing cardiomegaly. CT abdomen and pelvis showing 5 cm upper pole right renal mass, bilateral renal atrophy, tiny umbilical hernia, and prostatomegaly. ASSESSMENT: This is a 47-year-old gentleman with history of hypertension, congestive heart failure, who comes in with fever, cough, shortness of breath, and for his nausea and vomiting and was found to have: 1. Gram-positive sepsis could be secondary to a catheter infection. The catheter has been removed. 2. Renal failure, on dialysis. 3. Possible right renal mass. 4. Hypertension. PLAN: 1. We will start the patient on IV vancomycin and Zosyn. 2. We will follow up cultures and adjust antibiotics accordingly. 3. We would suggest an Urology evaluation. I would like to thank, Dr. Martínez, for this consultation. Ned Hsu M.D. DR: SHADY JOB#: [id number] CC: Stormy Martínez M.D.; Fax#: [phone]
[2018-07-19] MEDS ORDERED: Acetaminophen 500mg (ES) tab ORAL PRN (17:08)
[2018-07-19] MEDS ORDERED: Tubing IV Secondary IV ONE (17:09)
[2018-07-19] MEDS ORDERED: 1/2 NS 1000ml IV ONE (17:09)
[2018-07-19] MEDS ORDERED: D5 1/2NS 1000ml IV ONE (17:09)
[2018-07-19] MEDS ORDERED: Heparin 1000 units/ml 1ml Vial INJ PRN ×2 (18:00)
--- NOTE | 2018-07-19 19:56 | Nephrology Progress Note ---
Assessment/Plan Problem List: (1) Renal mass (2) End-stage renal disease (3) Staph aureus infection (4) Sepsis (5) Fever Plan better since cath removal, HD 07/19 Subjective Constitutional: Reports: weakness HEENT: Reports: no symptoms Genitourinary: Reports: no symptoms Neurologic/Psychiatric: Reports: no symptoms Objective Objective Last 24 Hour Vital Signs Date Time Temp Pulse Resp B/P (MAP) Pulse Ox O2 Delivery O2 Flow Rate FiO2 07/19/18 17:23 113 18 143/96 (112) 100 07/19/18 16:00 98.1 114 18 112/61 (78) 97 07/19/18 16:00 Nasal Cannula 4.0 07/19/18 16:00 114 07/19/18 16:00 4.0 07/19/18 15:00 111 19 107/58 (74) 98 07/19/18 14:00 108 19 123/62 (82) 94 07/19/18 13:00 106 18 120/63 (82) 93 07/19/18 12:00 Nasal Cannula 4.0 07/19/18 12:00 98.5 107 19 129/67 (87) 100 07/19/18 12:00 4.0 07/19/18 12:00 107 07/19/18 11:00 107 20 153/76 (101) 100 07/19/18 10:00 110 21 146/58 (87) 100 07/19/18 09:00 106 20 142/73 (96) 96 07/19/18 08:00 Nasal Cannula 4.0 07/19/18 08:00 98.3 100 18 126/84 (98) 100 07/19/18 08:00 100 07/19/18 08:00 4.0 07/19/18 07:00 100 22 128/83 (98) 96 07/19/18 06:00 101 20 124/77 (93) 100 07/19/18 05:00 100 22 110/70 (83) 100 07/19/18 04:00 4.0 07/19/18 04:00 98.1 103 18 133/76 (95) 95 07/19/18 04:00 Nasal Cannula 4.0 07/19/18 03:25 103 07/19/18 03:00 108 26 111/65 (80) 100 07/19/18 02:00 105 21 135/66 (89) 99 07/19/18 01:00 108 23 137/65 (89) 99 07/19/18 00:00 Nasal Cannula 4.0 07/19/18 00:00 99.1 108 26 115/75 (88) 99 07/19/18 00:00 4.0 07/18/18 23:00 110 07/18/18 23:00 107 24 106/70 (82) 100 07/18/18 22:00 112 23 123/70 (87) 99 07/18/18 21:34 99.3 07/18/18 21:00 99.3 110 26 116/68 (84) 99 07/18/18 20:00 4.0 07/18/18 20:00 102.4 115 30 116/65 (82) 99 07/18/18 20:00 Nasal Cannula 4.0 07/18/18 20:00 Nasal Cannula 4.0 36 07/18/18 19:59 99 Nasal Cannula 4.0 36 Intake and Output 07/18/18 07/19/18 19:00 07:00 Intake Total 1000 ml 480 ml Balance 1000 ml 480 ml Intake Oral 0 ml 480 ml IV Total 1000 ml Laboratory Tests 07/19/18 04:25: White Blood Count 11.3H, Red Blood Count 3.22L, Hemoglobin 10.5L, Hematocrit 31.7L, Mean Corpuscular Volume 98, Mean Corpuscular Hemoglobin 32.6H, Mean Corpuscular Hemoglobin Concent 33.1, Red Cell Distribution Width 15.0H, Platelet Count 104L, Mean Platelet Volume 9.6, Neutrophils (%) (Auto) 77.8H, Lymphocytes (%) (Auto) 9.5L, Monocytes (%) (Auto) 12.0H, Eosinophils (%) (Auto) 0.3, Basophils (%) (Auto) 0.4, Sodium Level 137, Potassium Level 4.6, Chloride Level 98, Carbon Dioxide Level 23, Anion Gap 16H, Blood Urea Nitrogen 64H, Creatinine 17.3H, Estimat Glomerular Filtration Rate 3.6, Glucose Level 108H, Calcium Level 8.5 Height (Feet): 5 Height (Inches): 6.00 Weight (Pounds): 203 General Appearance: no apparent distress, alert EENT: normal ENT inspection Neck: normal alignment Cardiovascular: normal rate Respiratory/Chest: lungs clear Abdomen: non tender Extremities: other - no edema Neurologic: tube dispatcher II-XII grossly normal Michael Roldan MD Jul 19, 2018 19:56
[2018-07-19] MEDS ORDERED: Piperacillin/Tazobactam 2.25 GM in D5W 55 ML IVPB SCH (22:00)
[2018-07-20] VITALS (8 sets, daily range): BP systolic 137–168; BP diastolic 81–103
[2018-07-20 05:16] LABS: BASOPHILS % (AUTO) 0.5 % (0.0-2.0); EOSINOPHILS % (AUTO) 3.5 % (0.0-3.0); HEMATOCRIT 30.3 % (42.0-52.0); HEMOGLOBIN 10.3 G/DL (14.2-18.0); LYMPHOCYTES % (AUTO) 10.1 % (20.0-45.0); MEAN CORPUSCULAR VOLUME 94 FL (80-99); MONOCYTES % (AUTO) 14.3 % (1.0-10.0); NEUTROPHILS % (AUTO) 71.6 % (45.0-75.0); PLATELET COUNT 113 K/UL (150-450); RED BLOOD COUNT 3.21 M/UL (4.70-6.10); RED CELL DISTRIBUTION WIDTH 14.4 % (11.6-14.8); WHITE BLOOD COUNT 8.1 K/UL (4.8-10.8)
[2018-07-20] MEDS: Heparin 5000 units/ml inj SUBQ SCH ×2 (08:09→20:36)
[2018-07-20] MEDS ORDERED: Aspirin EC 81mg tab ORAL SCH (09:45)
[2018-07-20] MEDS ORDERED: Vitamin D 1000 IU Tab ORAL SCH (09:45)
[2018-07-20] MEDS ORDERED: Labetalol 200mg tab ORAL SCH (09:45)
--- NOTE | 2018-07-20 12:08 | Nephrology Progress Note ---
Assessment/Plan Problem List: (1) Renal mass (2) End-stage renal disease (3) Staph aureus infection (4) Sepsis (5) Fever Plan better since cath removal, HD 07/21 vanco Subjective Constitutional: Reports: no symptoms HEENT: Reports: no symptoms Genitourinary: Reports: no symptoms Neurologic/Psychiatric: Reports: no symptoms Objective Objective Last 24 Hour Vital Signs Date Time Temp Pulse Resp B/P (MAP) Pulse Ox O2 Delivery O2 Flow Rate FiO2 07/20/18 10:05 106 157/103 07/20/18 10:04 106 157/103 07/20/18 09:00 Nasal Cannula 4.0 07/20/18 08:45 106 157/103 (121) 07/20/18 08:42 98.6 07/20/18 08:00 98.5 110 21 168/102 (124) 96 07/20/18 04:00 98.6 103 50 150/87 (108) 96 07/20/18 00:00 98.3 108 20 137/90 (106) 96 07/20/18 00:00 Nasal Cannula 4.0 07/19/18 20:00 98.0 71 20 146/97 (113) 100 71 07/19/18 20:00 Nasal Cannula 4.0 07/19/18 17:23 113 18 143/96 (112) 100 07/19/18 16:00 98.1 114 18 112/61 (78) 97 07/19/18 16:00 Nasal Cannula 4.0 07/19/18 16:00 114 07/19/18 16:00 4.0 07/19/18 15:00 111 19 107/58 (74) 98 07/19/18 14:00 108 19 123/62 (82) 94 07/19/18 13:00 106 18 120/63 (82) 93 Intake and Output 07/19/18 07/20/18 18:59 06:59 Intake Total 110 ml 560 ml Output Total 1000 ml Balance 110 ml -440 ml Intake Oral 0 ml 560 ml IV Total 110 ml Output Hemodialysis UF 1000 ml # Bowel Movements 3 Laboratory Tests 07/20/18 04:40: White Blood Count 8.1, Red Blood Count 3.21L, Hemoglobin 10.3L, Hematocrit 30.3L , Mean Corpuscular Volume 94, Mean Corpuscular Hemoglobin 31.9H, Mean Corpuscular Hemoglobin Concent 33.9, Red Cell Distribution Width 14.4, Platelet Count 113L, Mean Platelet Volume 10.0, Neutrophils (%) (Auto) 71.6, Lymphocytes (%) (Auto) 10.1L, Monocytes (%) (Auto) 14.3H, Eosinophils (%) (Auto) 3.5H, Basophils (%) (Auto) 0.5, Troponin I 0.121H, Random Vancomycin Level 23.4 Height (Feet): 5 Height (Inches): 6.00 Weight (Pounds): 198 General Appearance: no apparent distress, alert, lethargic EENT: PERRL/EOMI Neck: normal alignment Cardiovascular: normal rate, regular rhythm Respiratory/Chest: lungs clear, normal breath sounds Abdomen: non tender, soft 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
--- NOTE | 2018-07-20 12:33 | Infectious Diseases Prog Note ---
Assessment/Plan Assessment/Plan A: 1. Staph aureus sepsis secondary to a catheter infection. The catheter has been removed. 2. Renal failure, on dialysis. 3. right renal mass. 4. Hypertension. 5. anemia PLAN: 1. Continue IV vancomycin Subjective ROS Limited/Unobtainable: No Constitutional: Reports: no symptoms, other - feels better Respiratory: Reports: no symptoms Cardiovascular: Reports: no symptoms Gastrointestinal/Abdominal: Reports: no symptoms Genitourinary: Reports: other - dosen't make urine Allergies: Coded Allergies: No Known Allergies (Unverified , 04/16/18) Objective Vital Signs Last 24 Hour Vital Signs Date Time Temp Pulse Resp B/P (MAP) Pulse Ox O2 Delivery O2 Flow Rate FiO2 07/20/18 10:05 106 157/103 07/20/18 10:04 106 157/103 07/20/18 09:00 Nasal Cannula 4.0 07/20/18 08:45 106 157/103 (121) 07/20/18 08:42 98.6 07/20/18 08:00 98.5 110 21 168/102 (124) 96 07/20/18 04:00 98.6 103 50 150/87 (108) 96 07/20/18 00:00 98.3 108 20 137/90 (106) 96 07/20/18 00:00 Nasal Cannula 4.0 07/19/18 20:00 98.0 71 20 146/97 (113) 100 71 07/19/18 20:00 Nasal Cannula 4.0 07/19/18 17:23 113 18 143/96 (112) 100 07/19/18 16:00 98.1 114 18 112/61 (78) 97 07/19/18 16:00 Nasal Cannula 4.0 07/19/18 16:00 114 07/19/18 16:00 4.0 07/19/18 15:00 111 19 107/58 (74) 98 07/19/18 14:00 108 19 123/62 (82) 94 07/19/18 13:00 106 18 120/63 (82) 93 Height (Feet): 5 Height (Inches): 6.00 Weight (Pounds): 198 General Appearance: no acute distress HEENT: mucous membranes moist Respiratory/Chest: lungs clear Cardiovascular: tachycardia, other - left arm AV shunt Abdomen: soft, non tender Extremities: no edema Neurologic/Psychiatric: alert, oriented x 3, responsive Microbiology Date/Time Source Procedure Growth Status 07/18/18 11:45 Blood Blood Culture - Preliminary Staphylococcus Aureus Resulted 07/18/18 11:40 Blood Blood Culture - Preliminary Staphylococcus Aureus Resulted 07/18/18 14:52 Nasal Nares MRSA Culture - Final NO METHICILLIN RESISTANT STAPH AUREUS... Complete 07/18/18 13:30 Nasal Nares Influenza Types A,B Antigen (LINDA) - Final Complete 07/18/18 16:54 Catheter Site Catheter Tip Culture - Preliminary Staphylococcus Aureus Staphylococcus Sp Coag Neg Resulted 07/18/18 14:52 Rectum VRE Culture - Final NO VANCOMYCIN RESISTANT ENTEROCOCCUS ... Resulted 07/18/18 14:52 Rectum Pending Resulted Laboratory Tests Test 07/20/18 04:40 White Blood Count 8.1 K/UL (4.8-10.8) Red Blood Count 3.21 M/UL (4.70-6.10) L Hemoglobin 10.3 G/DL (14.2-18.0) L Hematocrit 30.3 % (42.0-52.0) L Mean Corpuscular Volume 94 FL (80-99) Mean Corpuscular Hemoglobin 31.9 PG (27.0-31.0) H Mean Corpuscular Hemoglobin Concent 33.9 G/DL (32.0-36.0) Red Cell Distribution Width 14.4 % (11.6-14.8) Platelet Count 113 K/UL (150-450) L Mean Platelet Volume 10.0 FL (6.5-10.1) Neutrophils (%) (Auto) 71.6 % (45.0-75.0) Lymphocytes (%) (Auto) 10.1 % (20.0-45.0) L Monocytes (%) (Auto) 14.3 % (1.0-10.0) H Eosinophils (%) (Auto) 3.5 % (0.0-3.0) H Basophils (%) (Auto) 0.5 % (0.0-2.0) Troponin I 0.121 ng/mL (0.000-0.056) Random Vancomycin Level 23.4 ug/mL Current Medications Medications (Trade) Dose Ordered Sig/Matt Route PRN Reason Start Time Stop Time Status Last Admin Dose Admin Acetaminophen (Tylenol) 500 mg Q6H PRN ORAL Mild Pain/Temp > 100.5 07/19/18 17:08 08/18/18 17:07 07/20/18 08:12 Amlodipine Besylate (Norvasc) 10 mg DAILY ORAL 07/21/18 09:00 08/20/18 08:59 Aspirin (Ecotrin) 81 mg DAILY ORAL 07/21/18 09:00 08/20/18 08:59 Heparin Sodium (Porcine) (Heparin 5000 units/ml) 5,000 units EVERY 12 HOURS SUBQ 07/19/18 21:00 08/17/18 20:59 Heparin Sodium (Porcine) (Heparin Sod 1000 units/ml 10ml) 2,000 unit ONCE PRN IV dialysis use 07/21/18 06:00 07/21/18 23:59 Hydralazine HCl (Apresoline) 50 mg Q6HR ORAL 07/20/18 12:00 08/19/18 11:59 Labetalol HCl (Normodyne) 600 mg BID ORAL 07/21/18 09:00 08/20/18 08:59 Pantoprazole (Protonix) 40 mg DAILY ORAL 07/20/18 09:00 08/18/18 08:59 07/20/18 08:11 Quetiapine Fumarate (SEROquel) 200 mg BEDTIME ORAL 07/20/18 21:00 08/19/18 20:59 Sevelamer Carbonate (Renvela) 800 mg THREE TIMES A DAY ORAL 07/20/18 13:00 08/19/18 12:59 Sodium Chloride 1,000 ml @ 500 mls/hr Q2H PRN IVLG sbp<90 during hd 07/21/18 06:00 07/21/18 23:59 Vancomycin HCl (Vanco rx to dose) 1 ea DAILY PRN MISC Per rx protocol 07/19/18 17:08 08/18/18 17:07 Vitamin D (Vitamin D) 1,000 intlu DAILY ORAL 07/21/18 09:00 08/20/18 08:59 Charlie Maxwell MD Jul 20, 2018 12:33
[2018-07-20] MEDS: HydrALAZINE 50mg tab ORAL SCH ×3 (12:38→23:25)
[2018-07-20] MEDS: QUEtiapine 200mg tab ORAL SCH (20:36)
[2018-07-21] VITALS: BP 146/88
[2018-07-21 04:00] VITALS: BP 135/89
[2018-07-21] MEDS: HydrALAZINE 50mg tab ORAL SCH ×3 (05:15→17:15)
[2018-07-21] MEDS ORDERED: Heparin Sod 1000 units/ml 10ml IV PRN (06:00)
[2018-07-21 08:00] VITALS: BP 150/86
[2018-07-21] MEDS: Labetalol 200mg tab ORAL SCH ×2 (08:29→17:15)
[2018-07-21] MEDS: Heparin 5000 units/ml inj SUBQ SCH ×2 (08:30→21:00)
[2018-07-21] MEDS ORDERED: Aspirin EC 81mg tab ORAL SCH (09:00)
[2018-07-21] MEDS ORDERED: Vitamin D 1000 IU Tab ORAL SCH (09:00)
--- NOTE | 2018-07-21 10:41 | Diagnostic Imaging Report ---
Indications: Suspected tunneled dialysis catheter infection Technique: Procedure performed at bedside. Sterile prepping and draping left chest. Local anesthesia with 1% lidocaine. Using blunt dissection, the cuff of the catheter was freed from the surrounding soft tissues, and the catheter was removed. No imaging was utilized, other than a post procedure chest radiograph. The patient tolerated the procedure well, without immediate complication. The catheter tip was sent to the lab for microbial analysis Comparison: 6 hours earlier Findings: Completion chest radiograph documents complete removal of the tunneled dialysis catheter. Impression: Successful removal of tunneled dialysis catheter, as noted.
[2018-07-21 12:00] VITALS: BP 160/90
--- NOTE | 2018-07-21 12:40 | Infectious Diseases Prog Note ---
Assessment/Plan Assessment/Plan A: 1. Staph aureus (MSSA) sepsis secondary to a catheter infection. The catheter has been removed. 2. Renal failure, on dialysis. 3. right renal mass. 4. Hypertension. 5. anemia PLAN: 1. Change Vancomycin to Cefazolin Subjective ROS Limited/Unobtainable: No Constitutional: Reports: no symptoms Respiratory: Reports: no symptoms Gastrointestinal/Abdominal: Reports: no symptoms Genitourinary: Reports: no symptoms Allergies: Coded Allergies: No Known Allergies (Unverified , 04/16/18) Objective Vital Signs Last 24 Hour Vital Signs Date Time Temp Pulse Resp B/P (MAP) Pulse Ox O2 Delivery O2 Flow Rate FiO2 07/21/18 12:11 160/90 07/21/18 05:15 135/89 07/21/18 04:00 98.0 108 20 135/89 (104) 97 07/21/18 00:00 97.0 103 20 146/88 (107) 97 07/20/18 23:25 146/88 07/20/18 21:00 Nasal Cannula 4.0 07/20/18 20:00 98.2 103 20 142/94 (110) 97 07/20/18 17:16 149/81 07/20/18 16:00 98.4 97 21 149/81 (103) 97 07/20/18 12:38 152/100 Height (Feet): 5 Height (Inches): 6.00 Weight (Pounds): 200 General Appearance: no acute distress HEENT: mucous membranes moist Respiratory/Chest: lungs clear Cardiovascular: normal rate, other - left arm AV shunt Abdomen: soft, non tender Extremities: no edema Neurologic/Psychiatric: alert, responsive Microbiology Date/Time Source Procedure Growth Status 07/18/18 14:52 Nasal Nares MRSA Culture - Final NO METHICILLIN RESISTANT STAPH AUREUS... Complete 07/18/18 13:30 Nasal Nares Influenza Types A,B Antigen (LINDA) - Final Complete 07/18/18 16:54 Catheter Site Catheter Tip Culture - Final Staphylococcus Aureus Staphylococcus Sp Coag Neg Complete 07/18/18 14:52 Rectum VRE Culture - Final NO VANCOMYCIN RESISTANT ENTEROCOCCUS ... Complete 07/18/18 14:52 Rectum - Final NO CARBAPENEM-RESISTANT ENTEROBACTERI... Complete Current Medications Medications (Trade) Dose Ordered Sig/Matt Route PRN Reason Start Time Stop Time Status Last Admin Dose Admin Acetaminophen (Tylenol) 500 mg Q6H PRN ORAL Mild Pain/Temp > 100.5 07/19/18 17:08 08/18/18 17:07 07/20/18 08:12 Amlodipine Besylate (Norvasc) 10 mg DAILY ORAL 07/21/18 09:00 08/20/18 08:59 Aspirin (Ecotrin) 81 mg DAILY ORAL 07/21/18 09:00 08/20/18 08:59 07/21/18 08:31 Heparin Sodium (Porcine) (Heparin 5000 units/ml) 5,000 units EVERY 12 HOURS SUBQ 07/19/18 21:00 08/17/18 20:59 Heparin Sodium (Porcine) (Heparin Sod 1000 units/ml 10ml) 2,000 unit ONCE PRN IV dialysis use 07/21/18 06:00 07/21/18 23:59 Hydralazine HCl (Apresoline) 50 mg Q6HR ORAL 07/20/18 12:00 08/19/18 11:59 07/21/18 12:11 Labetalol HCl (Normodyne) 600 mg BID ORAL 07/21/18 09:00 08/20/18 08:59 Pantoprazole (Protonix) 40 mg DAILY ORAL 07/20/18 09:00 08/18/18 08:59 07/21/18 08:31 Quetiapine Fumarate (SEROquel) 200 mg BEDTIME ORAL 07/20/18 21:00 08/19/18 20:59 07/20/18 20:36 Sevelamer Carbonate (Renvela) 800 mg THREE TIMES A DAY ORAL 07/20/18 13:00 08/19/18 12:59 07/21/18 12:11 Sodium Chloride 1,000 ml @ 500 mls/hr Q2H PRN IVLG sbp<90 during hd 07/21/18 06:00 07/21/18 23:59 Vancomycin HCl (Vanco rx to dose) 1 ea DAILY PRN MISC Per rx protocol 07/19/18 17:08 08/18/18 17:07 Vitamin D (Vitamin D) 1,000 intlu DAILY ORAL 07/21/18 09:00 08/20/18 08:59 07/21/18 08:31 Charlie Maxwell MD Jul 21, 2018 12:39
[2018-07-21] MEDS ORDERED: ceFAZolin sod 1 GM in D5W 55 ML IVPB SCH (14:00)
[2018-07-21 16:00] VITALS: BP 166/106
--- NOTE | 2018-07-21 17:00 | Nephrology Progress Note ---
Assessment/Plan Plan Staph aureus Line sepsis - Perma Cath removed + on IV Vanco. ESRD - HD today. Subjective Subjective No new c/o. Anti HTN meds held??? Objective Objective Last 24 Hour Vital Signs Date Time Temp Pulse Resp B/P (MAP) Pulse Ox O2 Delivery O2 Flow Rate FiO2 07/21/18 16:00 98.2 109 19 166/106 (126) 07/21/18 12:11 160/90 07/21/18 12:00 97.7 86 18 160/90 (113) 99 07/21/18 08:00 97.8 90 16 150/86 (107) 07/21/18 05:15 135/89 07/21/18 04:00 98.0 108 20 135/89 (104) 97 07/21/18 00:00 97.0 103 20 146/88 (107) 97 07/20/18 23:25 146/88 07/20/18 21:00 Nasal Cannula 4.0 07/20/18 20:00 98.2 103 20 142/94 (110) 97 07/20/18 17:16 149/81 Intake and Output 07/20/18 07/21/18 18:59 06:59 Intake Total 480 ml 640 ml Balance 480 ml 640 ml Intake Oral 480 ml 640 ml # Voids 4 # Bowel Movements 1 Height (Feet): 5 Height (Inches): 6.00 Weight (Pounds): 200 Objective CV RR Lungs CTA ABD SNT. BS + E MACK aneurysmatic AVF! Stormy Martínez MD Jul 21, 2018 17:00
--- NOTE | 2018-07-21 19:11 | Cardiology Report ---
APPROVED REPORT EXAM: Two-dimensional and M-mode echocardiogram with Doppler and color Doppler. INDICATION Endocarditis M-Mode DIMENSIONS IVSd1.2 (0.7-1.1cm)Left Atrium (MM)4.3 (1.6-4.0cm) LVDd4.9 (3.5-5.6cm)Aortic Root4.0 (2.0-3.7cm) PWd1.1 (0.7-1.1cm)Aortic Cusp Exc.1.7 (1.5-2.0cm) IVSs1.8 cm LVDs2.4 (2.5-4.0cm) Normal left ventricular chamber size, systolic function and wall motion . Left ventricular ejection fraction estimated to be 60-65%. Mild left ventricular hypertrophy by 2-D. Anterior Echo-free space, may be due to pericardial fat or effusion. Left atrial enlargement. Right cardiac chamber sizes are within normal limits . Aortic valve calcification with normal cusp excursion . Mildly thickened mitral valve leaflets with normal excursion. Mitral annulus and aortic root calcification. Pulmonic valve not well visualized. IVC at normal size with physiologic collapse . A color flow and spectral Doppler study was performed and revealed: Mild to moderate aortic insufficiency . Mitral diastolic velocities suggest reduced left ventricular relaxation c/w mild LV diastolic dysfunction (Grade I ) Mild mitral regurgitation. Mild tricuspid regurgitation. Tricuspid systolic velocities suggests peak right ventricular systolic pressure of 34 mmHg.
--- NOTE | 2018-07-21 19:30 | Cardiology Report ---
APPROVED REPORT EKG Measurement Heart [id number] Sinus tachycardia Possible Left atrial enlargement Left axis deviation T wave abnormality, consider lateral ischemia Abnormal ECG
[2018-07-21 20:00] VITALS: BP 117/63
[2018-07-21] MEDS: QUEtiapine 200mg tab ORAL SCH (21:00)
--- NOTE | 2018-07-22 11:04 | Diagnostic Imaging Report ---
APPROVED REPORT CPT Code: 56973 Present Symptoms Comments: BILATERAL LEGS PAIN. BILATERAL: Imaging reveals a patent deep venous system bilaterally. There is no evidence of thrombus within the femoral, popliteal or tibial segments. The greater saphenous veins are also within normal limits. Doppler indicates normal spontaneous flow within these segments.
--- NOTE | 2018-07-23 11:43 | Discharge Summary ---
Discharge Summary Discharge Summary _ DATE OF ADMISSION: 07/18/2018 DATE OF DISCHARGE: 2018 DISCHARGED BY: Dr. Martínez REASON FOR ADMISSION: 47 years old male with past medical history of end-stage renal disease, on hemodialysis, status post multiple vascular surgeries, hypertensive cardiovascular disease, psychosis, was sent from the outpatient hemodialysis due to fever and tachypnea. Patient denied any pain. Patient reported left chest Perma-catheter. Patient stated that it has to be removed soon, because now he was being dialyzed through the left arm AV fistula. He denied cough, shortness of breath, body aches, abdominal pain, chest pain, cough, sputum production, headache. Patient complained of vomiting twice earlier that morning and loose stool noted as well, but no abdominal pain. Upon evaluation patient was febrile 102.6, tachycardic with heart rate 107, tachypneic with respiratory rate 35. Laboratory workup revealed revealed WBC 11.2, hemoglobin 11.2, hematocrit 24.5, platelets 135. Sodium 134, anion gap 17. BUN 48, creatinine 15, consistent with known history of end-stage renal disease. Troponin -0. 22. EKG revealed sinus tachycardia no acute ischemic changes. Lactic acid 1.1. CK 786. ABG on 4 L of oxygen was stable. Chest x-ray revealed cardiomegaly, no definite acute process. Hemodialysis catheter noted. CT of the abdomen and pelvis demonstrated 5 cm upper pole right renal mass, concerning for renal neoplasm. Evidence of bilateral renal atrophy, consistent with known history of end- stage renal disease and evidence of polycythemia disease of uremia. Fluid-filled colon, may indicate diarrheal illness. Tiny umbilical hernia containing a small knuckle of small bowel. No definite evidence of obstruction or strangulation. Prostatomegaly. Mild cardiomegaly. Dialysis catheter. Emergency room physician spoke to vascular surgeon Dr. Morris, who requested removal of hemodialysis catheter PRATIK by interventional radiology. Patient subsequently undergone later that day removal of Perma- catheter by interventional radiologist. Patient was pancultured, started on empiric antibiotics and admitted for further antibiotic management. CONSULTANTS: ID specialist Dr. Hsu HOSPITAL COURSE: Patient admitted. Venous duplex bilateral lower extremity revealed no evidence of acute DVT. Supplemental oxygen provided as needed to keep pulse oximetry above 92%. Pulmonary toilet was on standby as needed. Echocardiogram revealed preserved ejection fraction of 60-65%. No evidence of wall motion abnormality. Mild left ventricular hypertrophy. Mild to moderate aortic insufficiency. Right ventricular systolic pressure of 34. Repeated troponin was 0.121. Patient denied chest pain, shortness of breath. Elevated troponin was likely due to end-stage renal disease/leaking troponin. Blood culture revealed Staph aureus. Rapid influenza screen test was negative. Catheter tip revealed Staph aureus. Repeated blood culture on 07/21 were negative. Patient initially started on IV Vancomycin. Infectious disease specialist closely followed. Per infectious disease specialist, patient had Staph aureus sepsis secondary to catheter infection, which had been removed. Fevers resolved, leukocytosis resolved. Antibiotic was de-escalated to cefazolin after final culture and sensitivity was available. Patient will need to continue antibiotics for duration of time as specified by ID specialist. Hemodialysis was provided as per marketing lead with close monitoring of volumes and cardiorenal parameters. Blood pressure was managed with multiply antihypertensive medications, including calcium channel jessica, beta-jessica, hydralazine. DVT and GI prophylaxis provided. Antiplatelet therapy with aspirin continued. Recommended outpatient follow-up with MRI or CT scan with contrast (just prior to hemodialysis) for further workup of right renal mass. Hemoglobin and hematocrit were closely monitored with goal to keep hemoglobin above 7. Hemoglobin and hematocrit remained at the baseline. Prior to discharge hemoglobin 10.3, hematocrit 30.3. Patient clinically stabilized and was ready for discharge home. FINAL DIAGNOSES: MSSA sepsis secondary to catheter infection End-stage renal disease on hemodialysis Hypertensive cardiovascular disease Anemia Right renal mass DISCHARGE MEDICATIONS: See Medication Reconciliation list. DISCHARGE INSTRUCTIONS: Patient was discharged home. Follow up with primary care provider in one week. Follow-up with outpatient hemodialysis as scheduled. I have been assigned to dictate discharge summary for this account. I was not involved in the patient's management. Laverne Ramirez NP Jul 23, 2018 11:43
== END 2018-07-21 22:00 | disposition home or self-care (01) | DRG 314 ==
LOC: EMR 12:30 → ICU 12:38 → EDBEDREQ 17:21 → 3E 07-19 16:50
PROC: 0JPTXXZ Removal of Tunneled Vascular Access Device from Trunk Subcutaneous Tissue and Fascia, External Approach (ICD-10-PCS; principal; 2018-07-18)
PROC: 5A1D70Z Performance of Urinary Filtration, Intermittent, Less than 6 Hours Per Day (ICD-10-PCS; 2018-07-19)
DX: T82.7XXA Infection and inflammatory reaction due to other cardiac and vascular devices, implants and grafts, initial encounter (principal); A41.01 Sepsis due to Methicillin susceptible Staphylococcus aureus; N18.6 End stage renal disease; I13.11 Hypertensive heart and chronic kidney disease without heart failure, with stage 5 chronic kidney disease, or end stage renal disease; Z99.2 Dependence on renal dialysis; Z79.82 Long term (current) use of aspirin; D64.9 Anemia, unspecified; N28.89 Other specified disorders of kidney and ureter
CPT/HCPCS: 36415; 36589; 36590; 36600; 71045; 74176; 80048; 80053; 80202; 82550; 82553; 82803; 83605; 83735; 84100; 84484; 85007; 85025; 85610; 85730; 86710; 87040; 87070; 87081; 87181; 93005; 93306; 93970; 94760; 96361; 96365; 99291